=== PATIENT | male | born 1950 | race Caucasian/White ===

== ENCOUNTER 2018-08-16 12:44 | Emergency (ER) | payer MEDICARE ==
[2018-08-16] MEDS: LIDOCAINE 1%/EPI 30 ML INJ INJ (13:31)
[2018-08-16] MEDS: DIPHTH/TET/ACEL PERTUSS (ADULT) 0.5 ML VIAL IM* (13:40)
== END 2018-08-16 14:03 | disposition home or self-care (01) ==
LOC: FTE 12:44
DX: S01.81XA Laceration without foreign body of other part of head, initial encounter (principal); W01.0XXA Fall on same level from slipping, tripping and stumbling without subsequent striking against object, initial encounter; Y92.89 Other specified places as the place of occurrence of the external cause; Z23 Encounter for immunization
CPT/HCPCS: 12052; 90471; 90715; 99283-25